=== PATIENT | female | born 1995 | race Caucasian/White ===

== ENCOUNTER 2017-12-15 20:11 | Emergency (ER) | payer OTHER ==
[2017-12-15] MEDS ORDERED: IBUPROFEN 600 MG TAB PO STA (20:35)
[2017-12-15] MEDS ORDERED: ACETAMINOPHEN TAB 500 MG TAB PO STA (20:35)
--- NOTE | 2017-12-15 20:51 | ED ---
Fever HPI - General Chief Complaint: Fever Stated Complaint: URI/asthma Time Seen by Provider: 12/15/17 20:34 Source: patient, RN notes reviewed Mode of arrival: ambulatory Limitations: no limitations - History of Present Illness Initial Comments: This is a 22-year-old female who presents to the emergency department with chief complaint of upper respiratory infection. Patient states that 2 weeks ago she was diagnosed with a sinus infection. She states that she finished her course of antibiotics and steroids 2 days ago. She states that since that time her symptoms have returned. She reports sinus congestion, facial pain, sore throat, cough, body aches. Patient states that she did not receive the influenza vaccine this year. She states that symptoms started with a sore throat last night. She states that she has been napping and every time she wakes up she feels worse. Patient states that she does have a history of asthma and has been having to use her albuterol inhaler. Denies chest pain or difficulty breathing. She denies nausea or vomiting, abdominal pain, diarrhea or constipation. - Related Data Previous Rx's Medication Instructions Recorded Azithromycin [Zithromax Z-pack] 0 mg PO DIRECTED #6 tab 12/15/17 Oseltamivir [Tamiflu] 75 mg PO Q12HR #10 cap 12/15/17 predniSONE 20 mg PO BID #8 tab 12/15/17 Allergies Allergy/AdvReac Type Severity Reaction Status Date / Time No Known Allergies Allergy Verified 12/15/17 20:57 Review of Systems ROS Statement: Those systems with pertinent positive or pertinent negative responses have been documented in the HPI. ROS Other: All systems not noted in ROS Statement are negative. Past Medical History Past Medical History: Asthma History of Any Multi-Drug Resistant Organisms: None Reported Past Surgical History: Orthopedic Surgery, Tonsillectomy Additional Past Surgical History / Comment(s): kidney surgery Past Psychological History: No Psychological Hx Reported Smoking Status: Never smoker Past Alcohol Use History: None Reported Past Drug Use History: None Reported General Exam - General Exam Comments Initial Comments: General: Awake and alert, well-developed; in no apparent distress. Febrile. HEENT: Head atraumatic, normocephalic. Pupils are equal, round and reactive to light. Extraocular movements intact. Oropharynx moist without erythema or exudate. Bilateral TMs are pearly without effusion. There is tenderness on palpation of frontal and maxillary sinuses. Neck: Supple. Normal ROM. Cardiovascular: Regular rate and rhythm. No murmurs, rubs or gallops. Chest symmetrical. Respiratory: Lungs clear to auscultation bilaterally. No wheezes, rales or rhonchi. Normal respiratory effort with no use of accessory muscles. Abdomen: Soft, non-tender, non-distended. No rigidity, rebound or guarding. Normal bowel sounds in all 4 quadrants. Musculoskeletal: Normal ROM, no tenderness bilateral upper and lower extremities. Ambulating normally. Skin: Pace, warm and dry without rashes or lesions. Neurological: Alert and oriented x3. CN II-XII grossly intact. Speech is fluent and answers are appropriate. No focal neuro deficits. Psychiatric: Normal mood and affect. No overt signs of depression or anxiety noted. Limitations: no limitations Course Vital Signs 12/15/17 12/15/17 20:30 21:32 Temperature 103.9 F H 99.9 F H Pulse Rate 120 H 105 H Respiratory 20 16 Rate Blood Pressure 134/68 131/56 O2 Sat by Pulse 98 96 Oximetry Medical Decision Making - Medical Decision Making This is a 30-year-old female who presents to the emergency department with chief complaint of upper respiratory infection. Patient points of sore throat, body aches, fevers, sinus congestion and cough. Patient was recently treated for a sinus infection and finished her course of antibiotics and steroids 2 days ago. On presentation, patient had a fever 103.9 and was given Tylenol and Motrin. Patient did test positive for influenza A. Chest x-ray revealed evidence for bibasilar opacities which may indicate an early pneumonia or atelectasis. This case was discussed with attending physician, Dr. Robbins who also evaluated the patient. Patient lungs are clear to auscultation bilaterally. Her vital signs are stabilizing. Patient will be treated for influenza with Tamiflu and for pneumonia with azithromycin. She'll also be started on a course of steroids. Return parameters were discussed. Patient was strongly advised to return to the emergency department if any worsening of symptoms or she has any difficulty with breathing. Patient is in no acute distress and will be discharged home. She is in agreement with plan and voices understanding. All questions were answered. - Lab Data Lab Results 12/15/17 12/15/17 Range/Units 20:50 20:50 Influenza Type A RNA Detected H (Not Detectd) Influenza Type B (PCR) Not Detected (Not Detectd) Group A Strep Rapid Negative (Negative) - Radiology Data Radiology results: report reviewed Chest x-ray impression: Bibasilar patchy opacity is favored to represent atelectasis as they are only seen on the frontal image, however given the patient's symptoms early pneumonia is possible and short-term follow-up is recommended. Disposition Clinical Impression: Influenza, Community acquired pneumonia Disposition: HOME SELF-CARE Condition: Good Instructions: Influenza (ED), Community Acquired Pneumonia (ED) Additional Instructions: Please take medications as prescribed. Please follow up with primary care provider within 1-2 days. Return to emergency department if symptoms should worsen or any concerns arise. Prescriptions: Azithromycin [Zithromax Z-pack] 0 mg PO DIRECTED #6 tab Oseltamivir [Tamiflu] 75 mg PO Q12HR #10 cap predniSONE 20 mg PO BID #8 tab Referrals: None,Stated [Primary Care Provider] - 1-2 days Time of Disposition: 22:04
--- NOTE | 2017-12-15 21:05 | XR ---
EXAMINATION TYPE: XR chest 2V DATE OF EXAM: 12/15/2017 COMPARISON: NONE HISTORY: Shortness of breath, cough, and fever for 3 days TECHNIQUE: Frontal and lateral views of the chest are obtained. FINDINGS: Ill-defined bibasilar opacities are seen on the frontal image only and favored to represen t atelectasis, however given the patient's symptoms these could represent early pneumonia. Short-term follow-up exam is recommended. The cardiac silhouette size is within normal limits. The osseous s tructures are intact. IMPRESSION: Bibasilar patchy opacities favored to represent atelectasis as they are only seen on the frontal image, however given the patient's symptoms early pneumonia is possible and short-term follo w-up is recommended.
[2017-12-15 21:34] VITALS: PULSE 105
[2017-12-15] MEDS ORDERED: predniSONE 50 MG TAB PO STA (22:04)
[2017-12-15 22:25] VITALS: BP 150/70; RESP 20; TEMP 100.9
== END 2017-12-15 22:27 | disposition home or self-care (01) ==
LOC: EC 20:11
DX: J10.00 Influenza due to other identified influenza virus with unspecified type of pneumonia (principal)
CPT/HCPCS: 99283; 87081; 87430; 87502; 71046; J7512